=== PATIENT | female | born 1990 | race Caucasian/White ===

== ENCOUNTER 2016-12-17 16:21 | Emergency (ER) | payer OTHER ==
[~2016-12-17] VITALS: Ht 152.4 cm; Wt 39.0 kg
[~2016-12-17 16:21] MED LIST: FERR325C PO; IBUP800T25 PO; TUCKS PR
[2016-12-17 16:36] VITALS: Ht 152.4 cm; Wt 39.0 kg
[2016-12-17 17:46] LABS: BASOPHILS % 0.3 % (0.0-2.0); EOSINOPHILS # 0.4 10^3/ul (0.0-0.5); EOSINOPHILS % 6.1 % (0.0-7.0); HEMATOCRIT 42.2 % (37.0-47.0); HEMOGLOBIN 14.5 g/dl (12.0-16.0); LYMPHOCYTES # 1.5 10^3/ul (0.8-2.9); LYMPHOCYTES % 22.3 % (15.0-51.0); MEAN CORPUSCULAR HEMOGLOBIN 30.7 pg (29.0-33.0); MEAN CORPUSCULAR HGB CONC 34.3 g/dl (32.0-37.0); MEAN CORPUSCULAR VOLUME 89.6 fl (82.0-101.0); MEAN PLATELET VOLUME 8.3 fl (7.4-10.4); MONOCYTE # 0.7 10^3/ul (0.3-0.9); MONOCYTES % 11.5 % (0.0-11.0); NEUTROPHIL # 3.9 10^3/ul (1.6-7.5); NEUTROPHILS % 59.8 % (39.0-77.0); PLATELET COUNT 221 10^3/UL (140-440); RED BLOOD COUNT 4.71 10^6/ul (4.20-5.40); RED CELL DISTRIBUTION WIDTH 13.3 % (11.5-14.5); UNCORRECTED WBC 6.5 10^3/ul (4.8-10.8); WHITE BLOOD COUNT 6.5 10^3/ul (4.8-10.8)
[2016-12-17 17:51] LABS: ADD UMIC YES; URINE BILIRUBIN (Dip) NEGATIVE (NEGATIVE); URINE BLOOD (Dip) 2+ (NEGATIVE); URINE COLOR LT. YELLOW (YELLOW); URINE GLUCOSE (Dip) NEGATIVE (NEGATIVE); URINE KETONES (Dip) TRACE (NEGATIVE); URINE LEUKOCYTE ESTERASE (Dip) NEGATIVE (NEGATIVE); URINE NITRITE (Dip) NEGATIVE (NEGATIVE); URINE TOTAL PROTEIN (Dip) NEGATIVE (NEGATIVE); URINE UROBILINOGEN (Dip) 0.2 E.U./dL (0.1-1.0)
[2016-12-17 17:52] LABS: CONDITION 1
[2016-12-17 17:54] LABS: ALBUMIN 4.8 g/dl (3.3-4.9)
[2016-12-17 17:55] LABS: POTASSIUM 3.9 mmol/L (3.5-5.1)
[2016-12-17 17:57] LABS: ALBUMIN/GLOBULIN RATIO 1.6; BILIRUBIN,INDIRECT 0.2 mg/dl (0-1.1); BILIRUBIN,TOTAL 0.2 mg/dl (0.2-1.3); CALCIUM 9.3 mg/dl (8.4-10.2); CREATININE 0.73 mg/dl (0.44-1.00); TOTAL PROTEIN 7.8 g/dl (6.1-8.1)
[2016-12-17 18:01] LABS: SQUAMOUS EPITHELIAL CELL,UR RARE
--- NOTE | 2016-12-17 18:23 | RADRPT ---
PROCEDURE: Pelvic ultrasound. CLINICAL INDICATION: Pelvic ultrasound 05/05/2016 TECHNIQUE: Duarte scale, color doppler, spectral doppler ultrasound of the pelvis was performed with transabdominal transducers. COMPARISON: No prior studies are available for comparison. FINDINGS: Uterus: Position: Retroverted Normal myometrial echogenicity. Normal appearance of the endometrium. Ovaries: Normal sized ovaries with preserved blood flow. No adnexal masses. A few normal appearing sub-centimeter follicles are seen in each ovary. Free fluid: None. Measurements: Endometrium: 0.36 cm Uterus: 9.3 x 6.0 x 2.9 cm Right ovary: 2.5 x 1.7 x 2.9 cm Left ovary: 2.6 x 1.4 x 1.7 cm IMPRESSION: Normal examination. RPTAT: AADD .Phil Guillen MD, Date Time Electronically viewed and signed by .Phil Guillen MD, on 12/17/2016 18:23 .B/
[2016-12-17] MEDS ORDERED: IBUP400T22 PO (18:35)
--- NOTE | 2016-12-17 18:38 | ERD ---
ER Documentation Chief Complaint Date/Time DATE: 12/17/16 TIME: 18:36 Chief Complaint VAG BLEEDING WITH BILAT FLANK PAIN & DYSURIA WTIH FEVER HPI This 26-year-old female presents to complains of some suprapubic cramping and low back pain associated with vaginal bleeding. She was seen 4 days ago by primary doctor for pelvic pain and diagnosed with PID. She received a shot, likely Rocephin was discharged home with doxycycline and Flagyl. There is no confirmation of chlamydia or gonorrhea. Patient presents because she began having some vaginal bleeding and cramping today. Her last menstrual period was approximately 10 days ago. She denies . She denies a right or left- sided abdominal pain. She had a fever at home she states but no fever triage. ROS All systems reviewed and are negative except as per history of present illness. Medications Home Meds Active Scripts Ibuprofen* (Motrin*) 400 Mg Tab, 400 MG PO Q6, #15 TAB Prov:MONROE LEWIS MD 12/17/16 Ferrous Sulfate (Iron) 325 Mg Capsr, 325 MG PO BID, #60 2 Refills Prov:ANNIE MAK MD 05/08/16 Witch Sumaya* (Tucks* Pads) 40 Pad Pad, 1 PAD OR BEDSIDE MEDICATION Y for HEMORRHOID/EPISIOTMY PAIN for 7 Days, #4 PAD Prov:ANNIE MAK MD 05/08/16 Ibuprofen* (Ibuprofen*) 800 Mg Tablet, 800 MG PO Q6 for 10 Days, #40 TAB Prov:ANNIE MAK MD 05/08/16 Allergies Allergies: Coded Allergies: No Known Allergy (Unverified , 05/03/16) PMhx/Soc Medical and Surgical Hx: pt denies Medical Hx, pt denies Surgical Hx History of Surgery: No Anesthesia Reaction: No Hx Neurological Disorder: No Hx Respiratory Disorders: No Hx Cardiac Disorders: No Hx Psychiatric Problems: No Hx Miscellaneous Medical Probl: No Hx Alcohol Use: No Hx Substance Use: No Hx Tobacco Use: No Physical Exam Vitals Vital Signs Date Time Temp Pulse Resp B/P Pulse Ox O2 Delivery O2 Flow Rate FiO2 12/17/16 16:36 98.3 64 20 110/64 98 Physical Exam Const: [] Alert, [id number], pleasant Head: Atraumatic Eyes: Normal Conjunctiva ENT: Normal External Ears, Nose and Mouth. Neck: Full range of motion..~ No meningismus. Resp: Clear to auscultation bilaterally Cardio: Regular rate and rhythm, no murmurs Abd: Soft, minimal suprapubic tenderness. No tenderness at McBurney's point no rebound no Ruelas sign., non distended. Normal bowel sounds. Ambulatory without pain or discomfort. Skin: No petechiae or rashes Back: No midline or flank tenderness Ext: No cyanosis, or edema Neur: Awake and alert Psych: Normal Mood and Affect Result Diagram: 12/17/16172912/17/161729 Results 24 hrs Laboratory Tests Test 12/17/16 17:30 Alanine Aminotransferase (ALT/SGPT) 22IU/L Albumin 4.8g/dl Albumin/Globulin Ratio 1.60 Alkaline Phosphatase 73IU/L Anion Gap 16 Aspartate Amino Transf (AST/SGOT) 23IU/L Basophils # 0.010^3/ul Basophils % 0.3% Blood Urea Nitrogen 14mg/dl Calcium Level 9.3mg/dl Carbon Dioxide Level 29mmol/L Chloride Level 103mmol/L Creatinine 0.73mg/dl Direct Bilirubin 0.00mg/dl Eosinophils # 0.410^3/ul Eosinophils % 6.1% Globulin 3.00g/dl Glucose Level 96mg/dl Hematocrit 42.2% Hemoglobin 14.5g/dl Indirect Bilirubin 0.2mg/dl Lipase 173U/L Lymphocytes # 1.510^3/ul Lymphocytes % 22.3% Mean Corpuscular Hemoglobin 30.7pg Mean Corpuscular Hemoglobin Concent 34.3g/dl Mean Corpuscular Volume 89.6fl Mean Platelet Volume 8.3fl Monocytes # 0.710^3/ul Monocytes % 11.5% Neutrophils # 3.910^3/ul Neutrophils % 59.8% Nucleated Red Blood Cells # 0.010^3/ul Nucleated Red Blood Cells % 0.0/100WBC Platelet Count 88898^3/UL Potassium Level 3.9mmol/L Red Blood Count 4.7110^6/ul Red Cell Distribution Width 13.3% Sodium Level 144mmol/L Total Bilirubin 0.2mg/dl Total Protein 7.8g/dl Urine Bilirubin NEGATIVE Urine Clarity CLEAR Urine Color LT. YELLOW Urine Glucose NEGATIVE% Urine Hemoglobin 2+ Urine Ketones TRACE Urine Leukocyte Esterase NEGATIVE Urine Microscopic RBC 2-5/HPF Urine Microscopic WBC 0-2/HPF Urine Nitrite NEGATIVE Urine Specific [place] 1.025 Urine Squamous Epithelial Cells RARE Urine Total Protein NEGATIVE Urine Urobilinogen 0.2 E.U./dL Urine pH 6.0 White Blood Count 6.510^3/ul Current Medications Medications (Trade) Dose Ordered Sig/Zenaida Route PRN Reason Start Time Stop Time Status Last Admin Dose Admin Azithromycin (Zithromax) 1,000 mg ONCE ONCE PO 12/17/16 19:00 12/17/16 19:01 Procedures/MDM The uncertain cause of pain and possible fever at home. A CBC was performed which is normal CMP is normal and urine is negative. HCG is negative. Ultrasound read as normal by the radiologist. Patient had a benign abdomen on serial exam. Patient is given Zithromax 1 g p.o. as she did not receive the clinic by history. Patient will be discharged home and further observation, ibuprofen for pain and okay to discontinue doxycycline and Flagyl given possible side effects. Patient is advised to return for measured fevers, vomiting, worsening pain, especially in the right side or new worsening symptoms otherwise ibuprofen for pain and follow-up as directed. Patient may be having dysfunctional uterine bleeding and pelvic pain causes uncertain currently but has minimal pain and no evidence of distress or signs or symptoms of serious illness currently. The patient was stable with no new complaints during the ER course. Clinically, there is no current evidence to suggest meningitis, sepsis, acute abdomen, pneumonia, acute coronary syndrome, pulmonary embolism, or any other emergent condition appearing to require further evaluation or hospitalization. The patient should certainly return for any new or worsening symptoms per the aftercare instructions. They should otherwise follow-up with her primary care doctor for reevaluation this week. Do not think patient's current exam and laboratory results warrant radiation from CT scan. Departure Diagnosis: Primary Impression: Vaginal bleeding Patient Instructions: Dysfunctional Uterine Bleeding, Pelvic Pain, Unknown Cause Additional Instructions: Labs urine and ultrasound normal today. Follow-up with primary doctor for STD results. Recheck for new or worsening symptoms. Okay to stop current antibiotics and observe for new or worsening symptoms. MONROE LEWIS MD Dec 17, 2016 18:38
[2016-12-17] MEDS ORDERED: AZITHROMYCIN 250 MG TAB PO ONE (19:00)
== END 2016-12-17 18:57 | disposition home or self-care (01) ==
LOC: FTE 16:21
DX: N93.9 Abnormal uterine and vaginal bleeding, unspecified (principal); R10.2 Pelvic and perineal pain
CPT/HCPCS: 36415; 76856; 80053; 81001; 83690; 84703; 85025; Z7502; Z7610; 81003